=== PATIENT | female | born 1970 | race Caucasian/White ===

== ENCOUNTER 2019-05-24 11:27 | Inpatient (IN) | payer MEDICAID ==
[2019-05-24] MEDS ORDERED: MAGNESIUM SULFATE-D5W PMX 1 GM in DEXTROSE/WATER 1 100ML.BAG IVPB STA (11:49)
[2019-05-24] MEDS ORDERED: SODIUM CHLORIDE 0.9% 1,000 ML IV STA (11:49)
[2019-05-24] MEDS ORDERED: methylPREDNISolone SOD SUCCI 125 MG/2 ML VIAL IV STA (11:49)
[2019-05-24] MEDS ORDERED: LEVOFLOXACIN 750MG-D5W PMX 750 MG in DEXTROSE/WATER 1 150ML.BAG IVPB STA (12:12)
[2019-05-24] MEDS ORDERED: KETOROLAC 30 MG/ML 1 ML VIAL IVP STA (12:12)
--- NOTE | 2019-05-24 12:17 | ED ---
SOB HPI - General Stated Complaint: SIERRA Time Seen by Provider: 05/24/19 11:49 - History of Present Illness Initial Comments: This 48-year-old white female presents with a complaint of difficulty breathing. She states that this is been going on for approximately 5+ days. She has had a cough with greenish production. She's also had a temperature of up to 102.6. She has had a pleuritic type of chest pain and pain in her chest when she coughs. She does complain of occasional leg cramping worse on the right. She was seen at [facility] emergency department 5 days ago with thorough workup at that time. She relates that she had a chest x-ray which did not show any pneumonia and she was diagnosed with bronchitis. She also had laboratory analysis including a d-dimer. She had a lower extremity venous Doppler which was negative. She was discharged home on Zithromax, prednisone, and albuterol HFA. She states that despite these medications she is not any better. She has significant exertional dyspnea. She's had significant fatigue as well. She relates that her heart rate has been running almost 140 at home. 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 No other complaints or modifying factors. - Related Data Home Medications Medication Instructions Recorded Confirmed Acetaminophen [Tylenol 8 Hour] 650 mg PO Q8H PRN 05/24/19 05/24/19 Albuterol Inhaler [Ventolin Hfa 2 puff INHALATION RT-Q6H PRN 05/24/19 05/24/19 Inhaler] Benzonatate [Tessalon Perles] 100 mg PO Q8H PRN 05/24/19 05/24/19 predniSONE 40 mg PO DAILY 05/24/19 05/24/19 Allergies Allergy/AdvReac Type Severity Reaction Status Date / Time No Known Allergies Allergy Unverified 05/24/19 12:02 Review of Systems ROS Statement: Those systems with pertinent positive or pertinent negative responses have been documented in the HPI. ROS Other: All systems not noted in ROS Statement are negative. General Exam - General Exam Comments Initial Comments: GENERAL: The patient is well nourished and well hydrated. VITAL SIGNS: Heart rate, blood pressure, respiratory rate reviewed as recorded in nurse's notes. EYES: Pupils are round and reactive. Extraocular movements are intact. No conjunctival / lid redness or swelling. ENT: No external evidence of injury, swelling, or ecchymosis. Airway is patent. Throat is clear. NECK: Nontender. No swelling or evidence of injury. No subcutaneous emphysema. Trachea is midline. No thyroid mass. HEART: Tachycardic heart rate. Good peripheral pulses. LUNGS/CHEST: Mild rhonchi noted bilaterally but this is after 2 breathing treatments per EMS. No ecchymosis, subcutaneous emphysema, or tenderness. ABDOMEN: Abdomen soft without tenderness. No palpable masses or organomegaly. No peritoneal signs. No abdominal wall swelling or ecchymosis. EXTREMITIES: No extremity tenderness. Normal muscle tone and function. No thoracolumbar tenderness. NEUROLOGIC: Sensation is grossly intact. Cranial nerve exam reveals face is symmetrical, tongue is midline, speech is clear. SKIN: No abrasions or ecchymosis is noted. No induration or masses noted. PSYCHIATRIC: Alert and oriented. Appropriate behavior and judgment. Course Vital Signs 05/24/19 05/24/19 05/24/19 12:09 12:15 12:18 Temperature 99.1 F Pulse Rate 102 H 101 H Respiratory 18 16 16 Rate Blood Pressure 134/91 122/88 O2 Sat by Pulse 97 97 Oximetry 05/24/19 14:14 Temperature Pulse Rate 105 H Respiratory 18 Rate Blood Pressure 134/63 O2 Sat by Pulse 95 Oximetry Medical Decision Making - Medical Decision Making The patient was seen and examined. All diagnostics were reviewed. The IV is established and she is hydrated. She also is given Solu-Medrol 125 mg IV. She received a DuoNeb and albuterol breathing treatment per EMS prior to arrival. She is placed on a cardiac monitor technician and a sinus tachycardia is noted. Levaquin 750 mg IV is administered. She also receives Toradol for her pleuritic chest pain. The patient had a computed tomography angiogram of the thorax. This does not show any evidence of pulmonary embolism. It does show a right lower lobe infiltrate. There also is hepatic steatosis and nodule in the lung and liver. The patient was informed of these results. Her laboratory is essentially within normal limits except for a mild transaminitis. She is feeling remarkably improved on recheck. It is felt as though she has failed outpatient treatment and would require admission to the hospital. She is agreeable with this plan. The case will be discussed with internal medicine in the near future and patient is admitted to the general medical floor with telemetry. The patient was given a copy of her CT scan so she can show her primary care physician to follow-up on resolution of the pneumonia as well as follow up with the pulmonary and liver lesions. She also is requesting a work note and is given the next 7 days off of work and school. - Lab Data Result diagrams: 05/24/19 12:05 05/24/19 12:05 Lab Results 05/24/19 05/24/19 05/24/19 Range/Units 12:05 12:05 12:05 WBC 8.8 (3.8-10.6) k/uL RBC 4.90 (3.80-5.40) m/uL Hgb 15.0 (11.4-16.0) gm/dL Hct 43.9 (34.0-46.0) % MCV 89.6 (80.0-100.0) fL MCH 30.6 (25.0-35.0) pg MCHC 34.1 (31.0-37.0) g/dL RDW 12.8 (11.5-15.5) % Plt Count 275 (150-450) k/uL Neutrophils % 69 % Lymphocytes % 21 % Monocytes % 5 % Eosinophils % 2 % Basophils % 0 % Neutrophils # 6.0 (1.3-7.7) k/uL Lymphocytes # 1.8 (1.0-4.8) k/uL Monocytes # 0.5 (0-1.0) k/uL Eosinophils # 0.2 (0-0.7) k/uL Basophils # 0.0 (0-0.2) k/uL PT 9.7 (9.0-12.0) sec INR 0.9 (<1.2) APTT 23.0 (22.0-30.0) sec D-Dimer 0.53 (<0.60) mg/L FEU Sodium 140 (137-145) mmol/L Potassium 3.4 L (3.5-5.1) mmol/L Chloride 102 (98-107) mmol/L Carbon Dioxide 25 (22-30) mmol/L Anion Gap 13 mmol/L BUN 10 (7-17) mg/dL Creatinine 0.65 (0.52-1.04) mg/dL Est GFR (CKD-EPI)AfAm >90 (>60 ml/min/1.73 sqM) Est GFR (CKD-EPI)NonAf >90 (>60 ml/min/1.73 sqM) Glucose 108 H (74-99) mg/dL Calcium 10.2 (8.4-10.2) mg/dL Total Bilirubin 0.6 (0.2-1.3) mg/dL AST 47 H (14-36) U/L ALT 59 H (9-52) U/L Alkaline Phosphatase 116 (38-126) U/L Troponin I (0.000-0.034) ng/mL NT-Pro-B Natriuret Pep pg/mL Total Protein 7.6 (6.3-8.2) g/dL Albumin 4.5 (3.5-5.0) g/dL 05/24/19 05/24/19 Range/Units 12:05 12:05 WBC (3.8-10.6) k/uL RBC (3.80-5.40) m/uL Hgb (11.4-16.0) gm/dL Hct (34.0-46.0) % MCV (80.0-100.0) fL MCH (25.0-35.0) pg MCHC (31.0-37.0) g/dL RDW (11.5-15.5) % Plt Count (150-450) k/uL Neutrophils % % Lymphocytes % % Monocytes % % Eosinophils % % Basophils % % Neutrophils # (1.3-7.7) k/uL Lymphocytes # (1.0-4.8) k/uL Monocytes # (0-1.0) k/uL Eosinophils # (0-0.7) k/uL Basophils # (0-0.2) k/uL PT (9.0-12.0) sec INR (<1.2) APTT (22.0-30.0) sec D-Dimer (<0.60) mg/L FEU Sodium (137-145) mmol/L Potassium (3.5-5.1) mmol/L Chloride (98-107) mmol/L Carbon Dioxide (22-30) mmol/L Anion Gap mmol/L BUN (7-17) mg/dL Creatinine (0.52-1.04) mg/dL Est GFR (CKD-EPI)AfAm (>60 ml/min/1.73 sqM) Est GFR (CKD-EPI)NonAf (>60 ml/min/1.73 sqM) Glucose (74-99) mg/dL Calcium (8.4-10.2) mg/dL Total Bilirubin (0.2-1.3) mg/dL AST (14-36) U/L ALT (9-52) U/L Alkaline Phosphatase (38-126) U/L Troponin I <0.012 (0.000-0.034) ng/mL NT-Pro-B Natriuret Pep 47 pg/mL Total Protein (6.3-8.2) g/dL Albumin (3.5-5.0) g/dL Disposition Clinical Impression: Community acquired pneumonia, Fever, Transaminitis, Pulmonary nodule, Liver lesion, Sinus tachycardia, Bronchospasm, Failure of outpatient treatment Disposition: ADMITTED IP TO THIS [facility] Condition: Fair Is patient prescribed a controlled substance at d/c from ED?: No Referrals: Prieto Abdul DO [Primary Care Provider] - 1-2 days Time of Disposition: 15:50 Decision Date: 05/24/19 Decision Time: 15:50
[2019-05-24 12:34] LABS: Basophils % (A) 0 %; Eosinophils # (A) 0.2 k/uL (0-0.7); Eosinophils % (A) 2 %; HCT 43.9 % (34.0-46.0); Lymphocytes # (A) 1.8 k/uL (1.0-4.8); Lymphocytes % (A) 21 %; MCH 30.6 pg (25.0-35.0); MCHC 34.1 g/dL (31.0-37.0); MCV 89.6 fL (80.0-100.0); Mean Platelet Volume 7.1; Monocytes # (A) 0.5 k/uL (0-1.0); Monocytes % (A) 5 %; Neutrophils % (A) 69 %; Platelet Count 275 k/uL (150-450); RDW 12.8 % (11.5-15.5); WBC 8.8 k/uL (3.8-10.6)
[2019-05-24 12:43] LABS: ALT 59 U/L (9-52); AST 47 U/L (14-36); African American GFR (CKD) >90 (>60 ml/min/1.73 sqM); Albumin 4.5 g/dL (3.5-5.0); Alkaline Phosphatase 116 U/L (38-126); Anion Gap 13 mmol/L; Blood Urea Nitrogen 10 mg/dL (7-17); Calcium 10.2 mg/dL (8.4-10.2); Carbon Dioxide 25 mmol/L (22-30); Chloride 102 mmol/L (98-107); Glucose 108 mg/dL (74-99); Potassium 3.4 mmol/L (3.5-5.1); Sodium 140 mmol/L (137-145); Total Bilirubin 0.6 mg/dL (0.2-1.3); Total Protein 7.6 g/dL (6.3-8.2)
[2019-05-24 12:46] LABS: D-Dimer 0.53 mg/L FEU (<0.60); INR 0.9 (<1.2); Prothrombin Time 9.7 sec (9.0-12.0)
--- NOTE | 2019-05-24 14:36 | CT ---
EXAMINATION TYPE: CT angio chest DATE OF EXAM: 05/24/2019 COMPARISON: None HISTORY: Cough, difficulty breathing CT DLP: 308.7 mGycm Automated exposure control for dose reduction was used. CONTRAST: CTA scan of the thorax is performed with IV Contrast, patient injected with 100 mL of Isovue 370, pul monary embolism protocol. MIP images are created and reviewed. 3D reconstructed images are created on an independent workstation and reviewed. FINDINGS: LUNGS: The lungs are remarkable for airspace disease in the right lower lobe. There are air bronchogr ams. There is no pleural effusion or pneumothorax seen. The tracheobronchial tree is patent. AORTA: No additional significant abnormality is seen. MEDIASTINUM: There is satisfactory enhancement of the pulmonary artery and its branches, there is no CT evidence for pulmonary embolism. There are no greater than 1 cm hilar or mediastinal lymph nodes. No pericardial effusion is seen. OTHER: Low dense focus in the inferior right lobe of the liver on axial image 151 measures only 9 mm in size and is indeterminate. Low density in the liver may be due to hepatic steatosis.. There is a low dense focus within the left adrenal gland likely representing an adenoma. IMPRESSION: RIGHT LOWER LOBE PNEUMONIA. FOLLOW-UP WITH CHEST X-RAY TO RESOLUTION. Indeterminate foci within the l iver and lung, adrenal gland of questionable clinical significance, consider follow-up.
[2019-05-24] MEDS ORDERED: IBUPROFEN 400 MG TAB PO PRN (15:56)
[2019-05-24] MEDS ORDERED: ONDANSETRON 4 MG/2 ML VIAL IVP PRN (15:58)
[2019-05-24] MEDS ORDERED: POTASSIUM CHLORIDE ER 20 MEQ TAB.ER PO STA (15:58)
[2019-05-24] MEDS ORDERED: methylPREDNISolone SOD SUCCI 125 MG/2 ML VIAL IV SCH (18:00)
--- NOTE | 2019-05-25 00:02 | P.HPIM ---
History of Present Illness This is a pleasant 48 years old female with past medical history of rheumatoid arthritis. Presents because of dyspnea of 4 days duration , pt states on wednesday she was feeling fine but wednesday she has dyspnea developed so she went to ED of [facility] where they tested her and told her she has no influenza, no pneumonia , no PE, and she was discharged however she got worse so she came to this hospital , pt also has cough with green phlegm. chest pain only with coughing. she denies abd pain no n/v, no change in urine or bowel habits. 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 Labs showing unremarkable CBC and normal INR, d-dimer is not elevated at 0.53. BMP showing mild low potassium 3.4, normal creatinine 0.6, liver enzymes slightly elevated at AST 47 and ALT 59, bilirubin is within normal limits, troponin is negative. Influenza is not detected. EKG showing normal sinus rhythm at 99/m, QTC [address]-T changes. CT angiogram chest: Showing right lower lobe pneumonia, indeterminate foci within the liver, lung and abdominal gland was recommended to follow-up On admission patient was started on Levaquin and normal saline at 100 mL per hour Review of Systems CONSTITUTIONAL: No fever, no malaise, no fatigue. HEENT: No recent visual problems or hearing problems. Denied any sore throat. CARDIOVASCULAR: No orthopnea, PND, no palpitations, no syncope. PULMONARY: No shortness of breath, no cough, no hemoptysis. GASTROINTESTINAL: No diarrhea, no nausea, no vomiting, no abdominal pain. Normoactive bowel sounds. NEUROLOGICAL: No headaches, no weakness, no numbness. HEMATOLOGICAL: Denies any bleeding or petechiae. GENITOURINARY: Denies any burning micturition, frequency, or urgency. MUSCULOSKELETAL/RHEUMATOLOGICAL: Denies any joint pain, swelling, or any muscle pain. ENDOCRINE: Denies any polyuria or polydipsia. Past Medical History Past Medical History: Rheumatoid Arthritis (RA) Additional Past Medical History / Comment(s): psoriasis History of Any Multi-Drug Resistant Organisms: None Reported Past Surgical History: Section Past Psychological History: No Psychological Hx Reported Smoking Status: Former smoker Past Alcohol Use History: Occasional Past Drug Use History: None Reported - Past Family History Mother Family Medical History: Chest Pain / Angina, Coronary Artery Disease (CAD), CVA/TIA, Diabetes Mellitus, Eye Disorder, Hearing Disorder / Deafness, Hyperlipidemia, Hypertension, Osteoarthritis (OA), Pneumonia, Respiratory Disorder, Rheumatoid Arthritis (RA), Skin Disorder, Sleep Apnea/CPAP/BIPAP Medications and Allergies Home Medications Medication Instructions Recorded Confirmed Type Acetaminophen [Tylenol 8 Hour] 650 mg PO Q8H PRN 05/24/19 05/24/19 History Albuterol Inhaler [Ventolin Hfa 2 puff INHALATION RT-Q6H PRN 05/24/19 05/24/19 History Inhaler] Benzonatate [Tessalon Perles] 100 mg PO Q8H PRN 05/24/19 05/24/19 History predniSONE 40 mg PO DAILY 05/24/19 05/24/19 History Allergies Allergy/AdvReac Type Severity Reaction Status Date / Time No Known Allergies Allergy Unverified 05/24/19 12:02 Physical Exam Vitals: Vital Signs Temp Pulse Resp BP Pulse Ox 05/24/19 14:14 105 H 18 134/63 95 05/24/19 12:18 101 H 16 122/88 97 05/24/19 12:15 16 05/24/19 12:09 99.1 F 102 H 18 134/91 97 Intake and Output 05/24/19 05/24/19 05/24/19 06:59 14:59 22:59 Other: Weight 59.874 kg GENERAL: The patient is alert and oriented x3, not in any acute distress. Well developed, well nourished. HEENT: Pupils are round and equally reacting to light. EOMI. No scleral icterus. No conjunctival pallor. Normocephalic, atraumatic. No pharyngeal erythema. No thyromegaly. CARDIOVASCULAR: S1 and S2 present. No murmurs, rubs, or gallops. -PULMONARY: Chest is clear to auscultation, no wheezing or crackles. Decreased breath sounds in the right lower lung ABDOMEN: Soft, nontender, nondistended, normoactive bowel sounds. No palpable organomegaly. MUSCULOSKELETAL: No joint swelling or deformity. EXTREMITIES: No cyanosis, clubbing, or pedal edema. NEUROLOGICAL: Gross neurological examination did not reveal any focal deficits. SKIN: No rashes. No petechiae Results CBC & Chem 7: 05/24/19 12:05 05/24/19 12:05 Labs: Abnormal Lab Results - Last 24 Hours (Table) 05/24/19 Range/Units 12:05 Potassium 3.4 L (3.5-5.1) mmol/L Glucose 108 H (74-99) mg/dL AST 47 H (14-36) U/L ALT 59 H (9-52) U/L Assessment and Plan Assessment: Right lower lobe pneumonia indeterminate foci within the liver, lung and abdominal gland was recommended to follow-up chronic rheumatoid arthritis Dehydration Plan: This is a pleasant 48 years old female who presents because of pneumonia. Continue with antibiotics. Follow-up culture results. pain management Labs and medication were reviewed.. Continue same treatment. Continue with symptomatic treatment. Resume home medication. Monitor lytes and vitals. DVT and GI prophylaxis. Further recommendations of the clinical course of the patient DVT prophylaxis: Subcutaneous heparin GI Prophylaxis: Pepcid PT/OT: Pending Prognosis is guarded
[2019-05-25] MEDS: ACETAMINOPHEN TAB 500 MG TAB PO PRN (02:53)
[2019-05-25] MEDS: guaiFENesin-DM 100-10MG/5ML 10 ML CUP PO PRN ×2 (02:58→18:46)
[2019-05-25] MEDS ORDERED: methylPREDNISolone SOD SUCCI 40 MG/ML 1 ML VIAL IV SCH (06:00)
--- NOTE | 2019-05-25 07:07 | P.PN ---
Subjective This is a pleasant 48 years old female with past medical history of rheumatoid arthritis. Presents because of dyspnea of 4 days duration , pt states on wednesday she was feeling fine but wednesday she has dyspnea developed so she went to ED of [facility] where they tested her and told her she has no influenza, no pneumonia , no PE, and she was discharged however she got worse so she came to this hospital , pt also has cough with green phlegm. chest pain only with coughing. she denies abd pain no n/v, no change in urine or bowel habits. 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 Labs showing unremarkable CBC and normal INR, d-dimer is not elevated at 0.53. BMP showing mild low potassium 3.4, normal creatinine 0.6, liver enzymes slightly elevated at AST 47 and ALT 59, bilirubin is within normal limits, troponin is negative. Influenza is not detected. EKG showing normal sinus rhythm at 99/m, QTC [address]-T changes. CT angiogram chest: Showing right lower lobe pneumonia, indeterminate foci within the liver, lung and abdominal gland was recommended to follow-up On admission patient was started on Levaquin and normal saline at 100 mL per hour 05/25/2019 Patient states that she feels much better, and her breathing is easier. She still have some cough with phlegm. Her pain with coughing is subsiding. No other new complaints. Patient is hemodynamically stable, heart rate is 87-101. No much wheezing along exam. Labs from today are still pending. Patient remains on Levaquin intravenously. We'll continue with same antibiotics. We'll switch her IV Solu-Medrol to prednisone 40 mg daily. Start patient on normal saline at 75 m/h. Patient is made aware of her pneumonia as well as the small foci found on the liver, lung and adrenal gland with the instruction for the patient to follow-up with her PCP and she agrees. Risks including but not limited to precancerous explained to the patient and she verbalized understanding and acceptance Discussed with staff Review of systems CONSTITUTIONAL: No fever, no malaise, no fatigue. HEENT: No recent visual problems or hearing problems. Denied any sore throat. CARDIOVASCULAR: No orthopnea, PND, no palpitations, no syncope. PULMONARY: No shortness of breath, no cough, no hemoptysis. GASTROINTESTINAL: No diarrhea, no nausea, no vomiting, no abdominal pain. Normoactive bowel sounds. NEUROLOGICAL: No headaches, no weakness, no numbness. HEMATOLOGICAL: Denies any bleeding or petechiae. GENITOURINARY: Denies any burning micturition, frequency, or urgency. MUSCULOSKELETAL/RHEUMATOLOGICAL: Denies any joint pain, swelling, or any muscle pain. ENDOCRINE: Denies any polyuria or polydipsia. Active Medication List Acetaminophen (Tylenol Tab) 1,000 mg PO Q6H PRN PRN Reason: Fever/Mild pain Last Admin: 05/25/19 02:53 Dose: 1,000 mg Documented by: CIRO Albuterol/Ipratropium (Duoneb 0.5 Mg-3 Mg/3 Ml Soln) 3 ml INHALATION RT-Q4H PRN PRN Reason: shortness of breath Enoxaparin Sodium (Lovenox) 40 mg SQ DAILY [facility] Famotidine (Pepcid) 20 mg IV Q12HR [facility] Guaifenesin/Dextromethorphan (Robitussin Dm) 10 ml PO Q6H PRN PRN Reason: Cough Last Admin: 05/25/19 02:58 Dose: 10 ml Documented by: CIRO Levofloxacin 750 mg/ IV (Solution) 150 mls @ 100 mls/hr IVPB Q24H GEE Stop: 06/06/19 12:01 Sodium Chloride (Saline 0.9%) 1,000 mls @ 75 mls/hr IV .[id number] [facility] Ibuprofen (Motrin) 400 mg PO Q6H PRN PRN Reason: fever/pain Ondansetron HCl (Zofran) 4 mg IVP Q4H PRN PRN Reason: Nausea Prednisone () 40 mg PO DAILY [facility] Discontinued Medications Sodium Chloride (Saline 0.9%) 1,000 mls @ 100 mls/hr IV .Q10H STA Stop: 05/24/19 21:48 Last Admin: 05/24/19 12:33 Dose: 100 mls/hr Documented by: CELINAELAImer Magnesium Sulfate/Dextrose 1 (gm/ IV Solution) 100 mls @ 100 mls/hr IVPB ONCE STA Stop: 05/24/19 12:48 Last Admin: 05/24/19 15:08 Dose: 100 mls/hr Documented by: J CARLOS Levofloxacin 750 mg/ IV (Solution) 150 mls @ 100 mls/hr IVPB ONCE STA Stop: 05/24/19 13:41 Last Admin: 05/24/19 12:54 Dose: 100 mls/hr Documented by: J CARLOS Ketorolac Tromethamine (Toradol) 30 mg IVP ONCE STA Stop: 05/24/19 12:13 Last Admin: 05/24/19 12:33 Dose: 30 mg Documented by: J CARLOS Methylprednisolone Sodium Succinate (Solu-Medrol) 125 mg IV ONCE STA Stop: 05/24/19 11:50 Last Admin: 05/24/19 12:33 Dose: 125 mg Documented by: J CARLOS Methylprednisolone Sodium Succinate (Solu-Medrol) 60 mg IV QID [facility] Last Admin: 05/24/19 19:45 Dose: 60 mg Documented by: CIRO Methylprednisolone Sodium Succinate (Solu-Medrol) 40 mg IV Q12H [facility] Last Admin: 05/25/19 05:26 Dose: 40 mg Documented by: CIRO Potassium Chloride (K-Dur 20) 40 meq PO ONCE STA Stop: 05/24/19 15:59 Last Admin: 05/24/19 16:12 Dose: 40 meq Documented by: J CARLOS Objective - Vital Signs Vital signs: Vital Signs Temp 97.5 F L 05/25/19 00:02 Pulse 87 05/25/19 00:02 Resp 16 05/25/19 04:00 BP 126/78 05/25/19 00:02 Pulse Ox 95 05/25/19 00:02 Intake & Output 05/24/19 05/25/19 05/25/19 18:59 06:59 18:59 Weight 59.874 kg Other: Voiding Method Toilet # Voids 1 - Exam GENERAL: The patient is alert and oriented x3, not in any acute distress. Well developed, well nourished. HEENT: Pupils are round and equally reacting to light. EOMI. No scleral icterus. No conjunctival pallor. Normocephalic, atraumatic. No pharyngeal erythema. No thyromegaly. CARDIOVASCULAR: S1 and S2 present. No murmurs, rubs, or gallops. -PULMONARY: Chest is clear to auscultation, no wheezing or crackles. Decreased breath sounds in the right lower lung ABDOMEN: Soft, nontender, nondistended, normoactive bowel sounds. No palpable organomegaly. MUSCULOSKELETAL: No joint swelling or deformity. EXTREMITIES: No cyanosis, clubbing, or pedal edema. NEUROLOGICAL: Gross neurological examination did not reveal any focal deficits. SKIN: No rashes. No petechiae - Labs CBC & Chem 7: 05/24/19 12:05 05/24/19 12:05 Labs: Abnormal Lab Results - Last 24 Hours (Table) 05/24/19 Range/Units 12:05 Potassium 3.4 L (3.5-5.1) mmol/L Glucose 108 H (74-99) mg/dL AST 47 H (14-36) U/L ALT 59 H (9-52) U/L Assessment and Plan Assessment: Right lower lobe pneumonia indeterminate foci within the liver, lung and abdominal gland was recommended to follow-up. Patient is aware chronic rheumatoid arthritis Dehydration Plan: This is a pleasant 48 years old female who presents because of pneumonia. Continue with antibiotics. Follow-up culture results. pain management . Continue with IV fluids. Continue with steroids orally Labs and medication were reviewed.. Continue same treatment. Continue with symptomatic treatment. Resume home medication. Monitor lytes and vitals. DVT and GI prophylaxis. Further recommendations of the clinical course of the patient DVT prophylaxis: Subcutaneous Lovenox GI Prophylaxis: Pepcid
[2019-05-25] MEDS: IPRATROPIUM-ALBUTEROL 3 ML NEB INHALATION PRN ×4 (07:52→19:54)
[2019-05-25 08:02] LABS: Basophils % (A) 0 %; Eosinophils % (A) 0 %; HCT 40.5 % (34.0-46.0); HGB 13.7 gm/dL (11.4-16.0); Lymphocytes # (A) 0.8 k/uL (1.0-4.8); Lymphocytes % (A) 7 %; MCH 30.6 pg (25.0-35.0); MCHC 33.8 g/dL (31.0-37.0); MCV 90.3 fL (80.0-100.0); Monocytes # (A) 0.3 k/uL (0-1.0); Monocytes % (A) 2 %; Neutrophils # (A) 10.8 k/uL (1.3-7.7); Neutrophils % (A) 90 %; Platelet Count 334 k/uL (150-450); RBC 4.49 m/uL (3.80-5.40); RDW 12.9 % (11.5-15.5)
[2019-05-25 08:22] LABS: African American GFR (CKD) >90 (>60 ml/min/1.73 sqM); Anion Gap 10 mmol/L; Blood Urea Nitrogen 9 mg/dL (7-17); Calcium 10.2 mg/dL (8.4-10.2); Carbon Dioxide 26 mmol/L (22-30); Chloride 103 mmol/L (98-107); Glucose 138 mg/dL (74-99); Potassium 4.5 mmol/L (3.5-5.1); Sodium 139 mmol/L (137-145)
[2019-05-25] MEDS ORDERED: predniSONE 20 MG TAB PO SCH (09:00)
[2019-05-25] MEDS: ENOXAPARIN 40 MG/0.4 ML SYRINGE SQ SCH (09:01)
[2019-05-25] MEDS: SODIUM CHLORIDE 0.9% 1,000 ML IV SCH ×2 (09:01→21:46)
[2019-05-25] MEDS: FAMOTIDINE 20 MG/2 ML VIAL IV SCH ×2 (09:01→20:15)
[2019-05-25] MEDS: LEVOFLOXACIN 750MG-D5W PMX 750 MG in DEXTROSE/WATER 1 150ML.BAG IVPB SCH (11:18)
[2019-05-25] MEDS ORDERED: BUTALB/APAP/CAFF 50-325-40MG TAB PO PRN (17:53)
[2019-05-25] MEDS: ALPRAZolam 0.5 MG TAB PO PRN (18:16)
[2019-05-25] MEDS: IPRATROPIUM 0.5 MG/2.5 ML NEBU INHALATION SCH (19:53)
[2019-05-25 21:56] LABS: Hemoglobin A1C 5.8 % (4.0-6.0)
[2019-05-26] MEDS: IPRATROPIUM 0.5 MG/2.5 ML NEBU INHALATION SCH ×6 (00:03→21:55)
[2019-05-26] MEDS: ALPRAZolam 0.5 MG TAB PO PRN ×3 (00:26→23:32)
[2019-05-26] MEDS: guaiFENesin-DM 100-10MG/5ML 10 ML CUP PO PRN ×2 (00:27→23:31)
[2019-05-26] MEDS: SODIUM CHLORIDE 0.9% 1,000 ML IV SCH (08:26)
[2019-05-26] MEDS: FAMOTIDINE 20 MG/2 ML VIAL IV SCH (08:26)
[2019-05-26] MEDS: ENOXAPARIN 40 MG/0.4 ML SYRINGE SQ SCH (08:26)
--- NOTE | 2019-05-26 08:36 | XR ---
EXAMINATION TYPE: XR chest 1V DATE OF EXAM: 05/26/2019 COMPARISON: CT chest 05/24/2019 HISTORY: Abnormal chest CT, pneumonia TECHNIQUE: Single frontal view of the chest is obtained. FINDINGS: Patient's basilar airspace disease may be improved and is not well seen on frontal project ion, patient is slightly rotated. Heart is normal. No pneumothorax or evident effusion. Possible sub segmental atelectatic changes at the left lung base. IMPRESSION: Suspect improvement in aeration.
[2019-05-26] MEDS ORDERED: predniSONE 10 MG TAB PO SCH (09:00)
[2019-05-26] MEDS: SYMBICORT 160-4.5 MCG INHALER INHALATION SCH ×2 (09:48→21:55)
[2019-05-26] MEDS: LEVOFLOXACIN 750MG-D5W PMX 750 MG in DEXTROSE/WATER 1 150ML.BAG IVPB SCH (11:30)
[2019-05-26 12:35] LABS: Bilirubin, Delta 0.2 mg/dL (0.0-0.2); Bilirubin,Unconjugated 0.1 mg/dL (0.0-1.1); Total Bilirubin 0.3 mg/dL (0.2-1.3); Total Protein 6.7 g/dL (6.3-8.2)
[2019-05-26] MEDS: ACETAMINOPHEN TAB 500 MG TAB PO PRN (14:26)
--- NOTE | 2019-05-26 14:50 | P.PN ---
Subjective This is a pleasant 48 years old female with past medical history of rheumatoid arthritis. Presents because of dyspnea of 4 days duration , pt states on wednesday she was feeling fine but wednesday she has dyspnea developed so she went to ED of [facility] where they tested her and told her she has no influenza, no pneumonia , no PE, and she was discharged however she got worse so she came to this hospital , pt also has cough with green phlegm. chest pain only with coughing. she denies abd pain no n/v, no change in urine or bowel habits. 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 Labs showing unremarkable CBC and normal INR, d-dimer is not elevated at 0.53. BMP showing mild low potassium 3.4, normal creatinine 0.6, liver enzymes slightly elevated at AST 47 and ALT 59, bilirubin is within normal limits, troponin is negative. Influenza is not detected. EKG showing normal sinus rhythm at 99/m, QTC [address]-T changes. CT angiogram chest: Showing right lower lobe pneumonia, indeterminate foci within the liver, lung and abdominal gland was recommended to follow-up On admission patient was started on Levaquin and normal saline at 100 mL per hour 05/25/2019 Patient states that she feels much better, and her breathing is easier. She still have some cough with phlegm. Her pain with coughing is subsiding. No other new complaints. Patient is hemodynamically stable, heart rate is 87-101. No much wheezing along exam. Labs from today are still pending. Patient remains on Levaquin intravenously. We'll continue with same antibiotics. We'll switch her IV Solu-Medrol to prednisone 40 mg daily. Start patient on normal saline at 75 m/h. Patient is made aware of her pneumonia as well as the small foci found on the liver, lung and adrenal gland with the instruction for the patient to follow-up with her PCP and she agrees. Risks including but not limited to precancerous explained to the patient and she verbalized understanding and acceptance Discussed with staff \05/26/2019 Patient still have dyspnea although she feels better especially with a breathing treatment. Her cough is improving, her chest pain with coughing only is also improving. No diarrhea. No dizziness. Patient complaining of from personal to change and she attributed to steroids, lower the dose of steroids to 30 mg daily currently and added inhalation steroids. No much wheezing on physical examination. Patient is becoming tachycardic especially after breathing treatments. We added Atrovent. Albuterol and do not. EKG showing sinus tachycardia at [address]-T changes. She remains on Levaquin and normal sinus 75 mL/h. Sputum culture showing no organisms seen on the Gram stain, culture results are still pending. Hemoglobin A1c is 5.8, pro-calcitonin is 0.04. Repeat chest x-ray was done today and the result is showing possible improvement Objective - Vital Signs Vital signs: Vital Signs Temp 98.7 F 05/26/19 07:00 Pulse 110 H 05/26/19 00:04 Resp 18 05/26/19 07:00 BP 126/87 05/26/19 07:00 Pulse Ox 97 05/26/19 07:00 Intake & Output 05/25/19 05/26/19 05/26/19 18:59 06:59 18:59 Intake Total 750 Balance 750 Intake: IV 750 Levofloxacin 750Mg-D5w 150 Pmx 750 mg In Dextrose/ Water 1 150ml.bag @ 100 mls/hr IVPB Q24H [facility] Rx#: [id number] Sodium Chloride 0.9% 1, 600 000 ml @ 75 mls/hr IV . [id number] [facility] Rx#:[id number] Other: Voiding Method Toilet # Voids 3 - Exam GENERAL: The patient is alert and oriented x3, not in any acute distress. Well developed, well nourished. HEENT: Pupils are round and equally reacting to light. EOMI. No scleral icterus. No conjunctival pallor. Normocephalic, atraumatic. No pharyngeal erythema. No thyromegaly. CARDIOVASCULAR: S1 and S2 present. No murmurs, rubs, or gallops. -PULMONARY: Chest is clear to auscultation, no wheezing or crackles. Decreased breath sounds in the right lower lung ABDOMEN: Soft, nontender, nondistended, normoactive bowel sounds. No palpable organomegaly. MUSCULOSKELETAL: No joint swelling or deformity. EXTREMITIES: No cyanosis, clubbing, or pedal edema. NEUROLOGICAL: Gross neurological examination did not reveal any focal deficits. SKIN: No rashes. No petechiae - Labs CBC & Chem 7: 05/25/19 07:14 05/25/19 07:14 Labs: Abnormal Lab Results - Last 24 Hours (Table) 05/25/19 05/25/19 Range/Units 07:14 07:14 WBC 12.0 H (3.8-10.6) k/uL Neutrophils # 10.8 H (1.3-7.7) k/uL Lymphocytes # 0.8 L (1.0-4.8) k/uL Glucose 138 H (74-99) mg/dL Microbiology - Last 24 Hours (Table) 05/25/19 08:00 Gram Stain - Preliminary Sputum 05/24/19 12:05 Blood Culture - Preliminary Blood No Growth after 24 hours Assessment and Plan Assessment: Right lower lobe pneumonia indeterminate foci within the liver, lung and abdominal gland was recommended to follow-up. Patient is aware chronic rheumatoid arthritis Dehydration Plan: This is a pleasant 48 years old female who presents because of pneumonia. Continue with antibiotics. Follow-up culture results. pain management . Co ntinue with IV fluids. Continue with steroids orally. call pulmonary consult Labs and medication were reviewed.. Continue same treatment. Continue with symptomatic treatment. Resume home medication. Monitor lytes and vitals. DVT and GI prophylaxis. Further recommendations of the clinical course of the patient DVT prophylaxis: Subcutaneous Lovenox GI Prophylaxis: Pepcid
--- NOTE | 2019-05-26 16:48 | P.CNPUL ---
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, patient has been diagnosed as acute bronchitis about a week ago which progressively with time developed into pneumonia like symptoms with right-sided lower chest pain cough and sputum production and breathing difficulty, pneumonia was confirmed on chest x-ray and CAT scan today's chest x-ray shows slight improvement in infiltrate but is still patient is symptomatic with thick greenish sputum production Review of Systems All systems: negative Past Medical History Past Medical History: Rheumatoid Arthritis (RA) Additional Past Medical History / Comment(s): psoriasis History of Any Multi-Drug Resistant Organisms: None Reported Past Surgical History: Section Past Psychological History: No Psychological Hx Reported Smoking Status: Former smoker Past Alcohol Use History: Occasional Past Drug Use History: None Reported - Past Family History Mother Family Medical History: Chest Pain / Angina, Coronary Artery Disease (CAD), CVA/TIA, Diabetes Mellitus, Eye Disorder, Hearing Disorder / Deafness, Hyperlipidemia, Hypertension, Osteoarthritis (OA), Pneumonia, Respiratory Disorder, Rheumatoid Arthritis (RA), Skin Disorder, Sleep Apnea/CPAP/BIPAP Medications and Allergies Home Medications Medication Instructions Recorded Confirmed Type Acetaminophen [Tylenol 8 Hour] 650 mg PO Q8H PRN 05/24/19 05/24/19 History Albuterol Inhaler [Ventolin Hfa 2 puff INHALATION RT-Q6H PRN 05/24/19 05/24/19 History Inhaler] Benzonatate [Tessalon Perles] 100 mg PO Q8H PRN 05/24/19 05/24/19 History predniSONE 40 mg PO DAILY 05/24/19 05/24/19 History Allergies Allergy/AdvReac Type Severity Reaction Status Date / Time No Known Allergies Allergy Unverified 05/24/19 12:02 Physical Exam Vitals: Vital Signs Temp Pulse Pulse Resp BP Pulse Ox 05/26/19 15:28 18 05/26/19 15:00 97.8 F 102 H 18 138/84 96 05/26/19 13:14 104 H 05/26/19 12:58 100 05/26/19 09:49 102 H 05/26/19 09:31 98 10/25/19 09:28 98 05/26/19 07:00 98.7 F 18 126/87 97 05/26/19 01:29 97.9 F 19 141/84 95 05/26/19 00:04 110 H 05/26/19 00:00 18 05/25/19 20:15 110 H 05/25/19 20:00 18 05/25/19 19:55 118 H 98 05/25/19 18:55 99.3 F 121 H 15 144/83 97 05/25/19 18:00 110 H 18 122/74 93 L Intake and Output 05/26/19 05/26/19 05/26/19 06:59 14:59 22:59 Intake Total 600 Balance 600 Intake: Intake, IV Titration 600 Amount Sodium Chloride 0.9% 1, 600 000 ml @ 75 mls/hr IV . [id number] [facility], [facility] Rx#:[id number] Other: # Voids 3 3 - Constitutional General appearance: average body habitus, cooperative, disheveled, mild distress - EENT Eyes: EOMI, PERRLA ENT: normal oropharynx Ears: bilateral: normal - Neck Neck: normal ROM - Respiratory Respiratory: right: dullness, bilateral: rales, negative: CTA, diminished, rhonchi, wheezing, prolonged expiration - Cardiovascular Rhythm: regular Heart sounds: normal: S1, S2 - Gastrointestinal General gastrointestinal: normal bowel sounds - Integumentary Integumentary: normal turgor - Neurologic Neurologic: CNII-XII intact - Musculoskeletal Musculoskeletal: gait normal, generalized weakness, strength equal bilaterally - Psychiatric Psychiatric: A&O x's 3, appropriate affect, intact judgment & insight Results - Laboratory Findings CBC and BMP: 05/25/19 07:14 05/25/19 07:14 PT/INR, D-dimer PT 9.7 sec (9.0-12.0) 05/24/19 12:05 INR 0.9 (<1.2) 05/24/19 12:05 D-Dimer 0.53 mg/L FEU (<0.60) 05/24/19 12:05 Abnormal lab findings: Abnormal Labs 05/24/19 05/25/19 05/25/19 12:05 07:14 07:14 WBC 12.0 H Neutrophils # 10.8 H Lymphocytes # 0.8 L Potassium 3.4 L Glucose 108 H 138 H AST 47 H ALT 59 H - Diagnostic Findings Chest x-ray: report reviewed, image reviewed CT scan - chest: report reviewed, image reviewed (Finding as noted above for right lower lobe pneumonia) Assessment and Plan Assessment: Acute hypoxic respiratory failure due to right lower lobe pneumonia Right lower lobe pneumonia Recent tracheobronchitis Plan: Continue antibiotics and oral prednisone with breathing treatments Patient clinical and radiographic appearance shows some slight improvement can be discharged in 24-48 hours with follow-up in outpatient basis Time with Patient: Greater than 30
[2019-05-26] MEDS: FAMOTIDINE 20 MG TAB PO SCH (19:40)
[2019-05-26 22:21] LABS: African American GFR (CKD) >90 (>60 ml/min/1.73 sqM); Anion Gap 10 mmol/L; Blood Urea Nitrogen 11 mg/dL (7-17); Carbon Dioxide 24 mmol/L (22-30); Chloride 108 mmol/L (98-107); Glucose 129 mg/dL (74-99); Magnesium 2.1 mg/dL (1.6-2.3); Potassium 4.3 mmol/L (3.5-5.1); Sodium 142 mmol/L (137-145)
[2019-05-26 22:35] LABS: Basophils # (A) 0.1 k/uL (0-0.2); Basophils % (A) 0 %; Eosinophils # (A) 0.1 k/uL (0-0.7); Eosinophils % (A) 1 %; HCT 40.4 % (34.0-46.0); HGB 12.8 gm/dL (11.4-16.0); Hypochromasia Slight; Lymphocytes % (A) 7 %; MCH 30.1 pg (25.0-35.0); MCHC 31.8 g/dL (31.0-37.0); MCV 94.7 fL (80.0-100.0); Mean Platelet Volume 8.1; Monocytes # (A) 0.5 k/uL (0-1.0); Monocytes % (A) 4 %; Neutrophils # (A) 11.7 k/uL (1.3-7.7); Neutrophils % (A) 88 %; Platelet Count 336 k/uL (150-450); RBC 4.26 m/uL (3.80-5.40); RDW 13.2 % (11.5-15.5); WBC 13.4 k/uL (3.8-10.6)
[2019-05-27] MEDS: SODIUM CHLORIDE 0.9% 1,000 ML IV SCH ×2 (01:17→13:45)
[2019-05-27] MEDS: IPRATROPIUM 0.5 MG/2.5 ML NEBU INHALATION SCH ×7 (03:34→23:58)
[2019-05-27 07:44] LABS: Albumin 3.4 g/dL (3.5-5.0); Bilirubin, Delta 0.1 mg/dL (0.0-0.2); Bilirubin,Unconjugated 0.2 mg/dL (0.0-1.1); Total Bilirubin 0.3 mg/dL (0.2-1.3); Total Protein 5.8 g/dL (6.3-8.2)
[2019-05-27] MEDS: SYMBICORT 160-4.5 MCG INHALER INHALATION SCH ×2 (08:30→21:19)
[2019-05-27] MEDS ORDERED: LEVOFLOXACIN 750MG-D5W PMX 750 MG in DEXTROSE/WATER 1 150ML.BAG IVPB SCH (09:00)
[2019-05-27] MEDS: predniSONE 10 MG TAB PO SCH (10:37)
[2019-05-27] MEDS: ENOXAPARIN 40 MG/0.4 ML SYRINGE SQ SCH (10:37)
[2019-05-27] MEDS: FAMOTIDINE 20 MG TAB PO SCH ×2 (10:37→20:10)
[2019-05-27] MEDS: ACETAMINOPHEN TAB 500 MG TAB PO PRN (10:38)
[2019-05-27] MEDS ORDERED: LEVOFLOXACIN 750 MG TAB PO SCH (12:00)
[2019-05-27] MEDS: FLUTICASONE 50MCG/SPRAY NASAL 16GM EA NOSTRIL SCH (15:56)
[2019-05-27] MEDS: IPRATROPIUM-ALBUTEROL 3 ML NEB INHALATION PRN (16:26)
--- NOTE | 2019-05-27 16:54 | P.PN ---
Subjective This is a pleasant 48 years old female with past medical history of rheumatoid arthritis. Presents because of dyspnea of 4 days duration , pt states on wednesday she was feeling fine but wednesday she has dyspnea developed so she went to ED of [facility] where they tested her and told her she has no influenza, no pneumonia , no PE, and she was discharged however she got worse so she came to this hospital , pt also has cough with green phlegm. chest pain only with coughing. she denies abd pain no n/v, no change in urine or bowel habits. 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 Labs showing unremarkable CBC and normal INR, d-dimer is not elevated at 0.53. BMP showing mild low potassium 3.4, normal creatinine 0.6, liver enzymes slightly elevated at AST 47 and ALT 59, bilirubin is within normal limits, troponin is negative. Influenza is not detected. EKG showing normal sinus rhythm at 99/m, QTC [address]-T changes. CT angiogram chest: Showing right lower lobe pneumonia, indeterminate foci within the liver, lung and abdominal gland was recommended to follow-up On admission patient was started on Levaquin and normal saline at 100 mL per hour 05/25/2019 Patient states that she feels much better, and her breathing is easier. She still have some cough with phlegm. Her pain with coughing is subsiding. No other new complaints. Patient is hemodynamically stable, heart rate is 87-101. No much wheezing along exam. Labs from today are still pending. Patient remains on Levaquin intravenously. We'll continue with same antibiotics. We'll switch her IV Solu-Medrol to prednisone 40 mg daily. Start patient on normal saline at 75 m/h. Patient is made aware of her pneumonia as well as the small foci found on the liver, lung and adrenal gland with the instruction for the patient to follow-up with her PCP and she agrees. Risks including but not limited to precancerous explained to the patient and she verbalized understanding and acceptance Discussed with staff \05/26/2019 Patient still have dyspnea although she feels better especially with a breathing treatment. Her cough is improving, her chest pain with coughing only is also improving. No diarrhea. No dizziness. Patient complaining of from personal to change and she attributed to steroids, lower the dose of steroids to 30 mg daily currently and added inhalation steroids. No much wheezing on physical examination. Patient is becoming tachycardic especially after breathing treatments. We added Atrovent. Albuterol and do not. EKG showing sinus tachycardia at [address]-T changes. She remains on Levaquin and normal sinus 75 mL/h. Sputum culture showing no organisms seen on the Gram stain, culture results are still pending. Hemoglobin A1c is 5.8, pro-calcitonin is 0.04. Repeat chest x-ray was done today and the result is showing possible improvement 05/27/2019 Patient thinks that she is improving gradually. She is saturating 90s on room air however she is tachypneic and dyspneic especially with minimal exertion like going to the bathroom. She still coughing but she thinks that's improving. Also patient was complaining of from epistaxis and Flonase was admitted as on examination there is evidence of rhinitis. Rest of Vitas are stable. WBC is 13.4 K, and BMP is unremarkable. Continue with prednisone 20 mg daily which looks that patient tolerates well, continue with normal saline at 75 blade to per hour and continue with Levaquin for now Objective - Vital Signs Vital signs: Vital Signs Temp 98.3 F 05/27/19 15:00 Pulse 92 05/27/19 16:36 Resp 16 05/27/19 15:00 BP 127/79 05/27/19 15:00 Pulse Ox 95 05/27/19 15:00 Intake & Output 05/26/19 05/27/19 05/27/19 18:59 06:59 18:59 Intake Total 800 Balance 800 Intake: Intake, IV Titration 600 Amount Sodium Chloride 0.9% 1, 600 000 ml @ 75 mls/hr IV . [id number] [facility] Rx#:[id number] Oral 200 Other: Voiding Method Toilet # Voids 3 2 1 - Exam GENERAL: The patient is alert and oriented x3, not in any acute distress. Well developed, well nourished. HEENT: Pupils are round and equally reacting to light. EOMI. No scleral icterus. No conjunctival pallor. Normocephalic, atraumatic. No pharyngeal erythema. No thyromegaly. CARDIOVASCULAR: S1 and S2 present. No murmurs, rubs, or gallops. -PULMONARY: Chest is clear to auscultation, no wheezing or crackles. Decreased breath sounds in the right lower lung ABDOMEN: Soft, nontender, nondistended, normoactive bowel sounds. No palpable organomegaly. MUSCULOSKELETAL: No joint swelling or deformity. EXTREMITIES: No cyanosis, clubbing, or pedal edema. NEUROLOGICAL: Gross neurological examination did not reveal any focal deficits. SKIN: No rashes. No petechiae - Labs CBC & Chem 7: 05/26/19 12:03 05/26/19 12:03 Labs: Abnormal Lab Results - Last 24 Hours (Table) 05/26/19 05/26/19 05/27/19 Range/Units 12:03 12:03 07:00 WBC 13.4 H (3.8-10.6) k/uL Neutrophils # 11.7 H (1.3-7.7) k/uL Chloride 108 H (98-107) mmol/L Glucose 129 H (74-99) mg/dL Total Protein 5.8 L (6.3-8.2) g/dL Albumin 3.4 L (3.5-5.0) g/dL Microbiology - Last 24 Hours (Table) 05/24/19 12:05 Blood Culture - Preliminary Blood No Growth after 72 hours 05/25/19 08:00 Gram Stain - Final Sputum Sputum Culture - Final Assessment and Plan Assessment: Right lower lobe pneumonia indeterminate foci within the liver, lung and abdominal gland was recommended to follow-up. Patient is aware chronic rheumatoid arthritis Dehydration Plan: This is a pleasant 48 years old female who presents because of pneumonia. Continue with antibiotics. Follow-up culture results. pain management . Continue with IV fluids. Continue with steroids orally. call pulmonary consult Labs and medication were reviewed.. Continue same treatment. Continue with symptomatic treatment. Resume home medication. Monitor lytes and vitals. DVT and GI prophylaxis. Further recommendations of the clinical course of the patient DVT prophylaxis: Subcutaneous Lovenox GI Prophylaxis: Pepcid
[2019-05-28] MEDS: SODIUM CHLORIDE 0.9% 1,000 ML IV SCH (01:15)
[2019-05-28] MEDS: ACETAMINOPHEN TAB 500 MG TAB PO PRN (03:09)
[2019-05-28] MEDS: IPRATROPIUM-ALBUTEROL 3 ML NEB INHALATION PRN (03:31)
[2019-05-28] MEDS: IPRATROPIUM 0.5 MG/2.5 ML NEBU INHALATION SCH ×5 (03:31→20:21)
--- NOTE | 2019-05-28 07:13 | XR ---
EXAMINATION TYPE: XR chest 1V DATE OF EXAM: 05/28/2019 HISTORY: f/u. REFERENCE: Previous study dated 05/26/2019. FINDINGS: There is a small area of left basilar airspace disease. There is a small left effusion. Rig ht lung is clear. The heart is mildly prominent. IMPRESSION: 1. MILD CARDIOMEGALY. 2. LEFT BASILAR AIRSPACE DISEASE. 3. SMALL LEFT EFFUSION.
[2019-05-28] MEDS: SYMBICORT 160-4.5 MCG INHALER INHALATION SCH ×2 (07:16→20:17)
[2019-05-28 07:23] LABS: Basophils # (A) 0.1 k/uL (0-0.2); Basophils % (A) 1 %; Eosinophils # (A) 0.2 k/uL (0-0.7); Eosinophils % (A) 1 %; HCT 37.4 % (34.0-46.0); HGB 12.5 gm/dL (11.4-16.0); Lymphocytes # (A) 2.3 k/uL (1.0-4.8); Lymphocytes % (A) 20 %; MCH 30.2 pg (25.0-35.0); MCHC 33.3 g/dL (31.0-37.0); MCV 90.7 fL (80.0-100.0); Mean Platelet Volume 6.7; Monocytes # (A) 0.6 k/uL (0-1.0); Monocytes % (A) 5 %; Neutrophils % (A) 71 %; Platelet Count 319 k/uL (150-450); RBC 4.13 m/uL (3.80-5.40); WBC 11.3 k/uL (3.8-10.6)
[2019-05-28 07:37] LABS: ALT 40 U/L (9-52); AST 20 U/L (14-36); African American GFR (CKD) >90 (>60 ml/min/1.73 sqM); Albumin 3.3 g/dL (3.5-5.0); Alkaline Phosphatase 83 U/L (38-126); Anion Gap 6 mmol/L; Bilirubin, Delta 0.1 mg/dL (0.0-0.2); Bilirubin,Unconjugated 0.2 mg/dL (0.0-1.1); Blood Urea Nitrogen 12 mg/dL (7-17); Calcium 9.6 mg/dL (8.4-10.2); Carbon Dioxide 31 mmol/L (22-30); Chloride 102 mmol/L (98-107); Glucose 79 mg/dL (74-99); Potassium 3.9 mmol/L (3.5-5.1); Sodium 139 mmol/L (137-145); Total Bilirubin 0.3 mg/dL (0.2-1.3); Total Protein 5.8 g/dL (6.3-8.2)
[2019-05-28] MEDS: predniSONE 10 MG TAB PO SCH (08:35)
[2019-05-28] MEDS: ENOXAPARIN 40 MG/0.4 ML SYRINGE SQ SCH (08:35)
[2019-05-28] MEDS: FAMOTIDINE 20 MG TAB PO SCH ×2 (08:36→20:59)
[2019-05-28] MEDS: LEVOFLOXACIN 750 MG TAB PO SCH (08:36)
[2019-05-28] MEDS: FLUTICASONE 50MCG/SPRAY NASAL 16GM EA NOSTRIL SCH (08:36)
--- NOTE | 2019-05-28 09:46 | P.PN ---
Subjective Progress Note Date: 05/27/19 Principal diagnosis: Acute hypoxic respiratory failure due to right lower lobe pneumonia Right lower lobe pneumonia and left lower lobe pneumonia Recent tracheobronchitis 05/27/19, patient seen eval reexamined during the rounds labs reviewed medications reviewed her cough congestion is improved significantly able to ambulate, chest x-ray ordered for a.m. 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, patient has been diagnosed as acute bronchitis about a week ago which progressively with time developed into pneumonia like symptoms with right-sided lower chest pain cough and sputum production and breathing difficulty, pneumonia was confirmed on chest x-ray and CAT scan today's chest x-ray shows slight improvement in infiltrate but is still patient is symptomatic with thick greenish sputum production Objective - Vital Signs Vital signs: Vital Signs Temp 98.2 F 05/27/19 19:51 Pulse 88 05/27/19 21:38 Resp 20 05/27/19 19:51 BP 132/82 05/27/19 19:51 Pulse Ox 93 L 05/27/19 19:51 Intake & Output 05/27/19 05/27/19 05/28/19 06:59 18:59 06:59 Intake Total 540 Balance 540 Intake: Oral 540 Other: Voiding Method Toilet # Voids 2 1 2 - Exam - Constitutional General appearance: average body habitus, cooperative, disheveled, mild distress - EENT Eyes: EOMI, PERRLA ENT: normal oropharynx Ears: bilateral: normal - Neck Neck: normal ROM - Respiratory Respiratory: right: dullness, bilateral: rales, negative: CTA, diminished, rhonchi, wheezing, prolonged expiration - Cardiovascular Rhythm: regular Heart sounds: normal: S1, S2 - Gastrointestinal General gastrointestinal: normal bowel sounds - Integumentary Integumentary: normal turgor - Neurologic Neurologic: CNII-XII intact - Musculoskeletal Musculoskeletal: gait normal, generalized weakness, strength equal bilaterally - Psychiatric Psychiatric: A&O x's 3, appropriate affect, intact judgment & insight - Labs CBC & Chem 7: 05/28/19 07:02 05/28/19 07:02 Labs: Abnormal Lab Results - Last 24 Hours (Table) 05/27/19 Range/Units 07:00 Total Protein 5.8 L (6.3-8.2) g/dL Albumin 3.4 L (3.5-5.0) g/dL Microbiology - Last 24 Hours (Table) 05/24/19 12:05 Blood Culture - Preliminary Blood No Growth after 72 hours 05/25/19 08:00 Gram Stain - Final Sputum Sputum Culture - Final Assessment and Plan Assessment: Acute hypoxic respiratory failure due to right lower lobe pneumonia Bilateral lower lobe pneumonia Recent tracheobronchitis Plan: Continue antibiotics and oral prednisone with breathing treatments, can be changed to oral Patient clinical and radiographic appearance shows some slight improvement can be discharged in 24-48 hours with follow-up in outpatient basis Time with Patient: Greater than 30
--- NOTE | 2019-05-28 09:48 | P.PN ---
Subjective Progress Note Date: 05/28/19 Principal diagnosis: Acute hypoxic respiratory failure due to right lower lobe pneumonia Right lower lobe pneumonia and left lower lobe pneumonia Recent tracheobronchitis 05/28/2019, patient seen eval examined during the rounds labs reviewed medications reviewed x-ray from this morning reviewed as well there is subtle left lower lobe infiltrates are present right-sided infiltrates are resolved patient is ambulating without any oxygen agree with discharge planning on oral antibiotics and steroids tapering with follow-up on outpatient basis 05/27/19, patient seen eval reexamined during the rounds labs reviewed medications reviewed her cough congestion is improved significantly able to ambulate, chest x-ray ordered for a.m. 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, patient has been diagnosed as acute bronchitis about a week ago which progressively with time developed into pneumonia like symptoms with right-sided lower chest pain cough and sputum production and breathing difficulty, pneumonia was confirmed on chest x-ray and CAT scan today's chest x-ray shows slight improvement in infiltrate but is still patient is symptomatic with thick greenish sputum production Objective - Vital Signs Vital signs: Vital Signs Temp 98.3 F 05/28/19 07:00 Pulse 92 05/28/19 07:18 Resp 17 05/28/19 07:00 BP 132/91 05/28/19 07:00 Pulse Ox 95 05/28/19 07:00 Intake & Output 05/27/19 05/28/19 05/28/19 18:59 06:59 18:59 Intake Total 1340 Balance 1340 Intake: Intake, IV Titration 500 Amount Sodium Chloride 0.9% 1, 500 000 ml @ 50 mls/hr IV . Q20H [facility] Rx#:[id number] Oral 840 Other: Voiding Method Toilet # Voids 1 2 1 - Exam - Constitutional General appearance: average body habitus, cooperative, disheveled, mild distress - EENT Eyes: EOMI, PERRLA ENT: normal oropharynx Ears: bilateral: normal - Neck Neck: normal ROM - Respiratory Respiratory: right: dullness, bilateral: rales, negative: CTA, diminished, rhonchi, wheezing, prolonged expiration - Cardiovascular Rhythm: regular Heart sounds: normal: S1, S2 - Gastrointestinal General gastrointestinal: normal bowel sounds - Integumentary Integumentary: normal turgor - Neurologic Neurologic: CNII-XII intact - Musculoskeletal Musculoskeletal: gait normal, generalized weakness, strength equal bilaterally - Psychiatric Psychiatric: A&O x's 3, appropriate affect, intact judgment & insight - Labs CBC & Chem 7: 05/28/19 07:02 05/28/19 07:02 Labs: Abnormal Lab Results - Last 24 Hours (Table) 05/28/19 05/28/19 Range/Units 07:02 07:02 WBC 11.3 H (3.8-10.6) k/uL Neutrophils # 8.0 H (1.3-7.7) k/uL Carbon Dioxide 31 H (22-30) mmol/L Total Protein 5.8 L (6.3-8.2) g/dL Albumin 3.3 L (3.5-5.0) g/dL Microbiology - Last 24 Hours (Table) 05/24/19 12:05 Blood Culture - Preliminary Blood No Growth after 72 hours 05/25/19 08:00 Gram Stain - Final Sputum Sputum Culture - Final Assessment and Plan Assessment: Acute hypoxic respiratory failure due to right lower lobe pneumonia Bilateral lower lobe pneumonia clinically and radiographically resolving Recent tracheobronchitis Plan: Continue antibiotics and oral prednisone with breathing treatments, can be changed to oral, patient is stable from pulmonary standpoint for discharge Follow-up on outpatient basis Time with Patient: Greater than 30
--- NOTE | 2019-05-28 10:57 | P.PN ---
Subjective This is a pleasant 48 years old female with past medical history of rheumatoid arthritis. Presents because of dyspnea of 4 days duration , pt states on wednesday she was feeling fine but wednesday she has dyspnea developed so she went to ED of [facility] where they tested her and told her she has no influenza, no pneumonia , no PE, and she was discharged however she got worse so she came to this hospital , pt also has cough with green phlegm. chest pain only with coughing. she denies abd pain no n/v, no change in urine or bowel habits. 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 Labs showing unremarkable CBC and normal INR, d-dimer is not elevated at 0.53. BMP showing mild low potassium 3.4, normal creatinine 0.6, liver enzymes slightly elevated at AST 47 and ALT 59, bilirubin is within normal limits, troponin is negative. Influenza is not detected. EKG showing normal sinus rhythm at 99/m, QTC [address]-T changes. CT angiogram chest: Showing right lower lobe pneumonia, indeterminate foci within the liver, lung and abdominal gland was recommended to follow-up On admission patient was started on Levaquin and normal saline at 100 mL per hour 05/25/2019 Patient states that she feels much better, and her breathing is easier. She still have some cough with phlegm. Her pain with coughing is subsiding. No other new complaints. Patient is hemodynamically stable, heart rate is 87-101. No much wheezing along exam. Labs from today are still pending. Patient remains on Levaquin intravenously. We'll continue with same antibiotics. We'll switch her IV Solu-Medrol to prednisone 40 mg daily. Start patient on normal saline at 75 m/h. Patient is made aware of her pneumonia as well as the small foci found on the liver, lung and adrenal gland with the instruction for the patient to follow-up with her PCP and she agrees. Risks including but not limited to precancerous explained to the patient and she verbalized understanding and acceptance Discussed with staff \05/26/2019 Patient still have dyspnea although she feels better especially with a breathing treatment. Her cough is improving, her chest pain with coughing only is also improving. No diarrhea. No dizziness. Patient complaining of from personal to change and she attributed to steroids, lower the dose of steroids to 30 mg daily currently and added inhalation steroids. No much wheezing on physical examination. Patient is becoming tachycardic especially after breathing treatments. We added Atrovent. Albuterol and do not. EKG showing sinus tachycardia at [address]-T changes. She remains on Levaquin and normal sinus 75 mL/h. Sputum culture showing no organisms seen on the Gram stain, culture results are still pending. Hemoglobin A1c is 5.8, pro-calcitonin is 0.04. Repeat chest x-ray was done today and the result is showing possible improvement 05/27/2019 Patient thinks that she is improving gradually. She is saturating 90s on room air however she is tachypneic and dyspneic especially with minimal exertion like going to the bathroom. She still coughing but she thinks that's improving. Also patient was complaining of from epistaxis and Flonase was admitted as on examination there is evidence of rhinitis. Rest of Vitas are stable. WBC is 13.4 K, and BMP is unremarkable. Continue with prednisone 20 mg daily which looks that patient tolerates well, continue with normal saline at 75 blade to per hour and continue with Levaquin for now 05/28/2019 Patient respiratory status is improving with less dyspnea however she still have some tachypnea especially with exertion. No chest pain cough and is improving. Patient feels significantly weak and she says that she has to go up stairs about 13 steps for home. Her heart rate was tachycardic at 124 yesterday however is improved today and then the 90s. Repeat chest x-ray showing improvement and she still have some left lower lung disease with some possible pleural effusion. Pulmonary follow-up is appreciated and they recommended patient can be discharged today or tomorrow,, we'll keep patient monitoring and as per physical therapy evaluation regarding her weakness. Her WBC is down to 11.3 K. I discussed with the patient the need for follow-up once she has been discharged and she agrees to proceed her PCP and Dr. Hernández as instructed Objective - Vital Signs Vital signs: Vital Signs Temp 98.3 F 05/28/19 07:00 Pulse 88 05/28/19 10:51 Resp 17 10/27/19 07:00 BP 132/91 05/28/19 07:00 Pulse Ox 95 05/28/19 07:00 Intake & Output 05/27/19 05/28/19 05/28/19 18:59 06:59 18:59 Intake Total 1340 Balance 1340 Intake: Intake, IV Titration 500 Amount Sodium Chloride 0.9% 1, 500 000 ml @ 50 mls/hr IV . Q20H [facility] Rx#:[id number] Oral 840 Other: Voiding Method Toilet # Voids 1 2 1 - Exam GENERAL: The patient is alert and oriented x3, not in any acute distress. Well developed, well nourished. HEENT: Pupils are round and equally reacting to light. EOMI. No scleral icterus. No conjunctival pallor. Normocephalic, atraumatic. No pharyngeal erythema. No thyromegaly. CARDIOVASCULAR: S1 and S2 present. No murmurs, rubs, or gallops. -PULMONARY: Chest is clear to auscultation, no wheezing or crackles. Decreased breath sounds in the right lower lung ABDOMEN: Soft, nontender, nondistended, normoactive bowel sounds. No palpable organomegaly. MUSCULOSKELETAL: No joint swelling or deformity. EXTREMITIES: No cyanosis, clubbing, or pedal edema. NEUROLOGICAL: Gross neurological examination did not reveal any focal deficits. SKIN: No rashes. No petechiae - Labs CBC & Chem 7: 05/28/19 07:02 05/28/19 07:02 Labs: Abnormal Lab Results - Last 24 Hours (Table) 05/28/19 05/28/19 Range/Units 07:02 07:02 WBC 11.3 H (3.8-10.6) k/uL Neutrophils # 8.0 H (1.3-7.7) k/uL Carbon Dioxide 31 H (22-30) mmol/L Total Protein 5.8 L (6.3-8.2) g/dL Albumin 3.3 L (3.5-5.0) g/dL Microbiology - Last 24 Hours (Table) 05/24/19 12:05 Blood Culture - Preliminary Blood No Growth after 72 hours 05/25/19 08:00 Gram Stain - Final Sputum Sputum Culture - Final Assessment and Plan Assessment: Right lower lobe pneumonia indeterminate foci within the liver, lung and abdominal gland was recommended to follow-up. Patient is aware chronic rheumatoid arthritis Dehydration Plan: This is a pleasant 48 years old female who presents because of pneumonia. Continue with antibiotics. Follow-up culture results. pain management . Continue with IV fluids. Continue with steroids orally. Follow-up recommendation by call pulmonary consult . As per physical therapy evaluation Labs and medication were reviewed.. Continue same treatment. Continue with symptomatic treatment. Resume home medication. Monitor lytes and vitals. DVT and GI prophylaxis. Further recommendations of the clinical course of the patient DVT prophylaxis: Subcutaneous Lovenox GI Prophylaxis: Pepcid
[2019-05-29] MEDS: IPRATROPIUM 0.5 MG/2.5 ML NEBU INHALATION SCH ×4 (00:09→11:06)
[2019-05-29] MEDS: IPRATROPIUM-ALBUTEROL 3 ML NEB INHALATION PRN (00:47)
[2019-05-29 07:53] LABS: Basophils # (A) 0.1 k/uL (0-0.2); Basophils % (A) 0 %; Eosinophils # (A) 0.1 k/uL (0-0.7); Eosinophils % (A) 1 %; HCT 38.8 % (34.0-46.0); HGB 12.9 gm/dL (11.4-16.0); Lymphocytes # (A) 2.5 k/uL (1.0-4.8); Lymphocytes % (A) 21 %; MCH 30.3 pg (25.0-35.0); MCHC 33.1 g/dL (31.0-37.0); MCV 91.4 fL (80.0-100.0); Mean Platelet Volume 7.2; Monocytes # (A) 0.6 k/uL (0-1.0); Monocytes % (A) 5 %; Neutrophils # (A) 8.3 k/uL (1.3-7.7); Neutrophils % (A) 70 %; Platelet Count 312 k/uL (150-450); RBC 4.25 m/uL (3.80-5.40); RDW 13.1 % (11.5-15.5); WBC 11.8 k/uL (3.8-10.6)
[2019-05-29] MEDS: SYMBICORT 160-4.5 MCG INHALER INHALATION SCH (07:53)
[2019-05-29 07:59] VITALS: BP 127/76; RESP 16; TEMP 98.2
[2019-05-29] MEDS: FAMOTIDINE 20 MG TAB PO SCH (08:50)
[2019-05-29] MEDS: FLUTICASONE 50MCG/SPRAY NASAL 16GM EA NOSTRIL SCH (08:50)
[2019-05-29] MEDS: ENOXAPARIN 40 MG/0.4 ML SYRINGE SQ SCH (08:51)
[2019-05-29] MEDS: LEVOFLOXACIN 750 MG TAB PO SCH (08:51)
[2019-05-29] MEDS ORDERED: predniSONE 10 MG TAB PO SCH (09:00)
--- NOTE | 2019-05-29 09:46 | P.DS ---
Providers Date of admission: 05/24/19 15:52 Attending physician: Charles Gannon Consults: 05/26/19 13:33 Consult Physician Urgent Consulting Provider: Sherwin Hernández Consult Reason/Comments: pna Do you want consulting provider notified?: Yes Primary care physician: Prieto Abdul Hospital Course: Diagnoses Right lower lobe pneumonia Systemic inflammatory response with tachycardia leukocytosis Sepsis secondary to above indeterminate foci within the liver, lung and abdominal gland was recommended to follow-up. Patient is aware chronic rheumatoid arthritis Dehydration, improved Hospital course: This is a pleasant 48 years old female with past medical history of rheumatoid arthritis. Presents because of dyspnea of 4 days duration and cough, on admission patient was found to have right genitalia acquired pneumonia. 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 Patient was treated with Levaquin, small dose of steroids and hydration. Patient showed interval improvement and on the day of discharge her dyspnea is significantly improved, she still have some cough and phlegm but is improved as well. CT angiogram chest: Showing right lower lobe pneumonia, indeterminate foci within the liver, lung and abdominal gland was recommended to follow-up. I called Dr. Abdul and he is already aware of the CT findings and he got a copy and he tested follow-up on that On the day of discharge she denies chest pain, no nausea vomiting, no abdominal pain, just some constipation but no change in urine habits. No fever. Her WBC is improved back to normal at 11.8 K, also patient on steroids. Patient is going to be discharged on a short course of Levaquin and 2 more days of prednisone 10 mg daily and albuterol inhaler Also patient has been having tachycardia especially when she takes albuterol therapy and secondary to her infection and sepsis. She was tachycardic yesterday at 124, however when she rested and we did EKG showed normal sinus rhythm at 100 bpm with no significant ST-T changes and QTC at 428 Patient has been cleared for discharge by pulmonary team Problems and management plan were discussed with the patient and he verbalized understanding and acceptance Patient was found stable and can be discharged home however he needs follow-up as an outpatient. Patient was instructed to follow up with PCP within one week and patient agrees. Patient agrees with the appointments made for her with PCP on light bulb assembler and stated she will follow up Gen: patient is a AAOx3, no distress CVS: S1-S2, RRR, no murmur Lungs: B/L CTA, no wheezing Abdomen: soft, no distention, no tenderness, positive bowel sounds Extremity: no leg edema or induration Time spent more than 35 minutes Patient Condition at Discharge: Fair Plan - Discharge Summary Discharge Rx Participant: Yes New Discharge Prescriptions: No Action predniSONE 40 mg PO DAILY Albuterol Inhaler [Ventolin Hfa Inhaler] 2 puff INHALATION RT-Q6H PRN PRN Reason: Shortness Of Breath Acetaminophen [Tylenol 8 Hour] 650 mg PO Q8H PRN PRN Reason: Pain Or Fever > 100.5 Benzonatate [Tessalon Perles] 100 mg PO Q8H PRN PRN Reason: Cough Discharge Medication List Acetaminophen [Tylenol 8 Hour] 650 mg PO Q8H PRN 05/24/19 [History] Albuterol Inhaler [Ventolin Hfa Inhaler] 2 puff INHALATION RT-Q6H PRN 05/24/19 [History] Benzonatate [Tessalon Perles] 100 mg PO Q8H PRN 05/24/19 [History] predniSONE 40 mg PO DAILY 05/24/19 [History] Follow up Appointment(s)/Referral(s): Prieto Abdul DO [Primary Care Provider] - 05/31/19 11:15 am (Please arrive 15 mins early ) Sherwin Hernández MD [STAFF PHYSICIAN] - 1 Week (Office closed at time of discharge Please call to make appointment.)
[2019-05-29 11:17] VITALS: PULSE 104
== END 2019-05-29 13:22 | disposition home or self-care (01) | DRG 871 ==
LOC: EC 11:27 → EEVIPCON 15:52 → 4SSUR 15:52
PROVIDERS: ADMIT Internal Medicine; ATTEND Internal Medicine
DX: A41.9 Sepsis, unspecified organism (principal); J18.9 Pneumonia, unspecified organism; J96.01 Acute respiratory failure with hypoxia; E86.0 Dehydration; J98.01 Acute bronchospasm; K76.0 Fatty (change of) liver, not elsewhere classified; M06.9 Rheumatoid arthritis, unspecified; L40.9 Psoriasis, unspecified; J31.0 Chronic rhinitis; Z82.49 Family history of ischemic heart disease and other diseases of the circulatory system; Z87.891 Personal history of nicotine dependence; Z83.3 Family history of diabetes mellitus; Z82.3 Family history of stroke; Z82.61 Family history of arthritis; Z83.6 Family history of other diseases of the respiratory system; Z83.438 Family history of other disorder of lipoprotein metabolism and other lipidemia; Z79.899 Other long term (current) drug therapy
CPT/HCPCS: 36415; 71045; 71275; 80048; 80053; 80076; 83036; 83735; 83880; 84145; 84484; 85025; 85379; 85610; 85730; 87040; 87070; 87205; 87502; 93005; 94640; 94760; 96361; 96365; 96366; 96367; 96375; 99285